=== PATIENT | female | born 1975 | race Caucasian/White ===

== ENCOUNTER 2017-04-13 20:48 | Emergency (ER) | payer OTHER ==
[~2017-04-13] VITALS: Wt 100.0 kg
[~2017-04-13 20:48] MED LIST: CIPR7.5D4 LEFT EAR; DOCU-144 PO; FER325 PO; FERR324T6 PO
[2017-04-13 22:00] LABS: URINE BLOOD (Dip) POC 3+ (NEGATIVE)
[2017-04-13 22:10] LABS: ADD SCAN DIFF NO
[2017-04-13 22:12] LABS: BASOPHILS % 0.4 % (0.0-2.0); EOSINOPHILS # 0.2 10^3/ul (0.0-0.5); HEMATOCRIT 23.7 % (37.0-47.0); HEMOGLOBIN 7.2 g/dl (12.0-16.0); LYMPHOCYTES # 2.7 10^3/ul (0.8-2.9); LYMPHOCYTES % 31.4 % (15.0-51.0); MEAN CORPUSCULAR HEMOGLOBIN 22.9 pg (29.0-33.0); MEAN CORPUSCULAR HGB CONC 30.4 g/dl (32.0-37.0); MEAN CORPUSCULAR VOLUME 75.5 fl (82.0-101.0); MEAN PLATELET VOLUME 9.4 fl (7.4-10.4); MONOCYTE # 0.9 10^3/ul (0.3-0.9); MONOCYTES % 10.6 % (0.0-11.0); NEUTROPHIL # 4.7 10^3/ul (1.6-7.5); NEUTROPHILS % 54.8 % (39.0-77.0); NUCLEATED RED BLOOD CELLS # 0.1 10^3/ul (0.0-0.0); NUCLEATED RED BLOOD CELLS% 0.7 /100WBC (0.0-0.0); PLATELET COUNT 231 10^3/UL (140-415); RED BLOOD COUNT 3.14 10^6/ul (4.20-5.40); RED CELL DISTRIBUTION WIDTH 17.3 % (11.5-14.5); WHITE BLOOD COUNT 8.6 10^3/ul (4.8-10.8)
[2017-04-13] MEDS ORDERED: SOD CHLORIDE 0.9% 250 ML IV ONE (22:54)
--- NOTE | 2017-04-13 23:19 | RADRPT ---
PROCEDURE: US Pelvis. CLINICAL INDICATION: Vaginal bleeding for 3 months. Pelvic pain TECHNIQUE: Multiple sonographic images of the pelvis were obtained utilizing a transabdominal and endovaginal technique. The images were reviewed on a PACS workstation. COMPARISON: 01/30/2016 FINDINGS: Uterus: Normal in size, contour and echogenicity with no evidence for myometrial masses. Size is est imated at 9.4 x 5.1 x 4.5 cm. Cervix: Multiple large Nabothian cysts are similar to the prior examination the largest cyst approx imately 17 mm Endometrium: Heterogeneous in echotexture, prominent in thickness; 17.6 mm. No hypervascular blood flow on Doppler interrogation. Thickness possibly related to the patients phase of menstruation pre suming a premenopausal status Right ovary / adnexa: Normal in size estimated at 2.4 x 2.3 x 1.3 cm. No evidence for solid masses , normal blood flow on Doppler interrogation. An ovoid anechoic structure in the adnexa measures 3.2 x 1.2 x 1.2 cm possibly a paraovarian cyst or hydrosalpinx. Left ovary/adnexa: Normal in size estimated at 2.6 x 2 x 1.8 cm. No evidence for solid masses, norm al blood flow on Doppler interrogation. Simple appearing cyst measures approximately 2 x 1.8 x 1.3 c m. Cul-de-sac: No evidence of free fluid. RPTAT:HJJR IMPRESSION: 1. Thickness of the endometrium is 17.6 cm, probably related to the patients phase of menstruation presuming a premenopausal status. 2. No evidence of myometrial masses. 3. Multiple simple Nabothian cysts unchanged from 01/30/2016. 4. Anechoic structure in the right adnexa probably a paraovarian cyst of 3.2 cm, differential diagn ostic possibility is hydrosalpinx. 5. Simple cyst of the left ovary measuring 2 cm. Physician Chery Date Time Electronically viewed and signed by Physician Chery on 04/13/2017 23:18 JR/
[2017-04-14] MEDS ORDERED: IBUP-1542 PO (01:54)
[2017-04-14] MEDS ORDERED: TRAN650T5 PO (01:54)
--- NOTE | 2017-04-14 02:03 | ERD ---
ER Documentation Chief Complaint Date/Time DATE: 04/14/17 TIME: 01:55 Chief Complaint VAGINAL BLEEDING X3 MONTHS W/ DIZZINESS HPI 42-year-old female with history of dysfunctional vaginal bleeding and anemia present ED with vaginal bleeding 3 month. Patient is complaining of feeling dizzy, chest pain, and fatigue. She went to [place] [facility] 2 weeks ago, and received a blood transfusion. Patient also had similar episode one year ago, with required hospitalization. Denies fever or chills. Denies any other medical history. ROS All systems reviewed and are negative except as per history of present illness. Medications Home Meds Active Scripts Ethinyl Estradiol-Drospirenone (Michelle 28-Day) 3-0.02 Mg Tablet, 1 TAB PO DAILY, # 28 TAB Prov:RADHA HARTLEY NP 04/14/17 Ibuprofen* (Motrin*) 600 Mg Tab, 600 MG PO Q6H Y for PAIN AND OR ELEVATED TEMP, #30 TAB Prov:RADHA HARTLEY NP 04/14/17 Docusate Sodium* (Colace*) 100 Mg Capsule, 100 MG PO DAILY, #30 CAP Prov:CELSA PABON PA-C 06/09/16 Ferrous Sulfate* (Ferrous Sulfate*) 325 Mg Tabec, 325 MG PO TID, #60 TAB Prov:CELSA PABON PA-C 06/09/16 Ciprofloxacin Hcl/Dexameth (Ciprodex Otic Suspension) 7.5 Ml Drops.susp, 4 DROP LEFT EAR BID for 7 Days, EA Prov:RAKESH LIPSCOMB PA-C 04/20/16 Ferrous Sulfate (Ferrous Sulfate) 324 Mg Tabsr, 324 MG PO BID for 28 Days Prov:DORITA EL MD 02/08/16 Discontinued Scripts Tranexamic Acid (TRANEXAMIC ACID) 650 Mg Tablet, 1300 MG PO TID, #30 TAB Take until mense stops or max 5 days. Prov:RADHA HARTLEY NP 04/14/17 Allergies Allergies: Coded Allergies: No Known Drug Allergy (Verified Allergy, Mild, 06/08/16) PMhx/Soc Medical and Surgical Hx: pt denies Medical Hx History of Surgery: No (cholecystectomy 2013) Anesthesia Reaction: No Hx Neurological Disorder: No Hx Respiratory Disorders: No Hx Cardiac Disorders: No Hx Psychiatric Problems: No Hx Miscellaneous Medical Probl: Yes (HEAVY MENISTRATIONS) Hx Alcohol Use: No Hx Substance Use: No Hx Tobacco Use: No Smoking Status: Never smoker Physical Exam Vitals Vital Signs Date Time Temp Pulse Resp B/P Pulse Ox O2 Delivery O2 Flow Rate FiO2 04/14/17 04:10 98.1 73 18 127/62 98 Room Air 04/14/17 03:00 97.3 73 17 111/64 100 Room Air 04/14/17 01:00 97.9 72 17 124/72 100 Room Air 04/13/17 20:50 99.6 96 18 167/83 98 Physical Exam General: Well-developed, well-nourished, conscious and coherent, in no distress Skin: Warm and dry without rash, good texture and turgor Head: Normocephalic without evidence of trauma Eyes: Sclera and conjunctivae normal; pupils equal, round, and reactive to light; extraocular movements are intact Neck: Supple without meningismus or adenopathy. Carotids are equal. Trachea midline. No bruits or JVD Chest: Normal AP diameter. Good expansion without retractions. Nontender. Lungs are clear to auscultate bilaterally with good tidal volume Heart: Regular rate and rhythm. No murmur, rub, or gallops heard Abdomen: Soft and nontender without masses, guarding, or rebound. Bowel sounds are active. No hepatosplenomegaly Back: Without spinal or CVA tenderness Pelvis: Nontender to palpation and stable to compression Extremities: Full range of motion. Good strength bilaterally. No clubbing, cyanosis, or edema. Peripheral pulses are intact. Sensation intact Neuro: Alert and oriented 4, GCS 15. Cranial nerves grossly intact. Motor and sensory exams nonfocal. Moves all extremities. Speech clear. Gait normal Result Diagram: 04/14/17 0400 Results 24 hrs Laboratory Tests Test 04/13/17 21:55 04/13/17 22:05 04/14/17 04:00 White Blood Count 8.610^3/ul 6.210^3/ul Red Blood Count 3.1410^6/ul 3.2310^6/ul Hemoglobin 7.2g/dl 7.8g/dl Hematocrit 23.7% 24.8% Mean Corpuscular Volume 75.5fl 76.8fl Mean Corpuscular Hemoglobin 22.9pg 24.1pg Mean Corpuscular Hemoglobin Concent 30.4g/dl 31.5g/dl Red Cell Distribution Width 17.3% 17.8% Platelet Count 17466^3/UL 64132^3/UL Mean Platelet Volume 9.4fl 9.4fl Neutrophils % 54.8% 57.3% Lymphocytes % 31.4% 30.7% Monocytes % 10.6% 8.4% Eosinophils % 2.0% 2.1% Basophils % 0.4% 0.5% Nucleated Red Blood Cells % 0.7/100WBC 0.6/100WBC Neutrophils # 4.710^3/ul 3.510^3/ul Lymphocytes # 2.710^3/ul 1.910^3/ul Monocytes # 0.910^3/ul 0.510^3/ul Eosinophils # 0.210^3/ul 0.110^3/ul Basophils # 0.010^3/ul 0.010^3/ul Nucleated Red Blood Cells # 0.110^3/ul 0.010^3/ul Bedside Urine pH (LAB) 6.0 Bedside Urine Protein (LAB) 1+ Bedside Urine Glucose (UA) Negative Bedside Urine Ketones (LAB) Negative Bedside Urine Blood 3+ Bedside Urine Nitrite (LAB) Negative Bedside Urine Leukocyte Esterase (L Negative Current Medications Medications (Trade) Dose Ordered Sig/Kat Route PRN Reason Start Time Stop Time Status Last Admin Dose Admin Sodium Chloride (NS) 250 ml @ 0 mls/hr Q0M ONCE IV 04/13/17 22:54 04/13/17 22:56 DC 04/13/17 22:54 Procedures/MDM Well-appearing 42-year-old female with history of dysfunctional uterine bleeding anemia present ED with vaginal bleeding 3 month. Hemoglobin today is 7.2. Patient is symptomatic for anemia with dizziness, fatigue, and chest pain. EKG: Normal sinus rhythm, normal axis, rate [address] segment elevation or depression. No ectopic beats. No QT prolongation. No other EKG abnormalities. EKG read by Dr. Estrada. I consulted Dr. Estrada, who suggests to transfuse 1 unit of packed red cell for the patient. Repeat CBC after blood transfusion showed hemoglobin increased to 7.8. I discussed with the patient regarding using oral contraception pills to control the menstruation cycle, and reduce bleeding. Patient is a non-smoker, no prior history of thromboembolism. Patient agreed to take OCP. Michelle is prescribed for the patient. Patient also advised to follow-up with a apparatus lineman. Patient appears well, stable for discharge and outpatient management. Medical decision making shared with patient and family. Education provided to patient and family. Patient and family expressed understanding of the plan. Medications on discharge: Michelle, ibuprofen. Follow-up: Primary care provider in 2-3 days or return to ED if worse. Disclaimer: Inadvertent spelling and grammatical errors are likely due to EHR/ dictation software use and do not reflect on the overall quality of patient care. Also, please note that the electronic time recorded on this note does not necessarily reflect the actual time of the patient encounter. Departure Diagnosis: Primary Impression: Anemia Anemia type: iron deficiency Iron deficiency anemia type: chronic blood loss Qualified Code: D50.0 - Iron deficiency anemia due to chronic blood loss Additional Impression: Dysfunctional uterine bleeding Condition: Stable Patient Instructions: Anemia, Dysfunctional Uterine Bleeding Additional Instructions: Llame al doctor MAANA y dick juarez MICHELLE PARA DENTRO DE 2-3 MONTERO.Dgale a la secretaria que nosotros le instruimos hacer esta michelle.Avise o llame si parks condicin se empeora antes de la michelle. Regresa aqui si peor o no mejor. RADHA HARTLEY NP Apr 14, 2017 02:03
[2017-04-14 04:10] VITALS: BP 127/62; PULSE 73; RESP 18; TEMP 98.1
[2017-04-14 04:15] LABS: ADD SCAN DIFF NO
[2017-04-14 04:17] LABS: BASOPHILS % 0.5 % (0.0-2.0); EOSINOPHILS # 0.1 10^3/ul (0.0-0.5); EOSINOPHILS % 2.1 % (0.0-7.0); HEMATOCRIT 24.8 % (37.0-47.0); HEMOGLOBIN 7.8 g/dl (12.0-16.0); LYMPHOCYTES # 1.9 10^3/ul (0.8-2.9); LYMPHOCYTES % 30.7 % (15.0-51.0); MEAN CORPUSCULAR HEMOGLOBIN 24.1 pg (29.0-33.0); MEAN CORPUSCULAR HGB CONC 31.5 g/dl (32.0-37.0); MEAN CORPUSCULAR VOLUME 76.8 fl (82.0-101.0); MEAN PLATELET VOLUME 9.4 fl (7.4-10.4); MONOCYTE # 0.5 10^3/ul (0.3-0.9); MONOCYTES % 8.4 % (0.0-11.0); NEUTROPHIL # 3.5 10^3/ul (1.6-7.5); NEUTROPHILS % 57.3 % (39.0-77.0); NUCLEATED RED BLOOD CELLS% 0.6 /100WBC (0.0-0.0); PLATELET COUNT 199 10^3/UL (140-415); RED BLOOD COUNT 3.23 10^6/ul (4.20-5.40); RED CELL DISTRIBUTION WIDTH 17.8 % (11.5-14.5); WHITE BLOOD COUNT 6.2 10^3/ul (4.8-10.8)
[2017-04-14] MEDS ORDERED: ETHI1TAB25 PO (04:40)
== END 2017-04-14 05:00 | disposition home or self-care (01) ==
LOC: FTE 20:48
DX: D50.0 Iron deficiency anemia secondary to blood loss (chronic) (principal); R40.2252 Coma scale, best verbal response, oriented, at arrival to emergency department; R42 Dizziness and giddiness; R40.2142 Coma scale, eyes open, spontaneous, at arrival to emergency department; R40.2362 Coma scale, best motor response, obeys commands, at arrival to emergency department
CPT/HCPCS: 36430; 76830; 76856; 81003; 85025; 86850; 86900; 86901; 86920; 93005; J7040; P9016; Z7502

== ENCOUNTER 2017-12-10 06:40 | Day surgery (SDC) | END 2017-12-10 13:16 | disposition home or self-care (01) ==

== ENCOUNTER 2018-02-28 22:24 | Emergency (ER) | END 2018-03-01 00:37 | disposition home or self-care (01) ==

== ENCOUNTER 2018-06-26 00:36 | Inpatient (IN) | END 2018-06-30 18:10 | disposition home or self-care (01) | DRG 760 ==

== ENCOUNTER 2018-07-29 08:13 | Day surgery (SDC) | END 2018-07-29 15:35 | disposition home or self-care (01) ==

== ENCOUNTER 2019-01-03 13:28 | Emergency (ER) | payer OTHER ==
[~2019-01-03] VITALS: Wt 89.0 kg
[~2019-01-03 13:28] MED LIST changes: +ASCO500C7 PO; +ATOR20TA38 PO; -CIPR7.5D4 LEFT EAR; -DOCU-144 PO; -FER325 PO; -FERR324T6 PO; +HYDR25TA6 PO; +METF500T24 PO
[2019-01-03 13:31] VITALS: BP 147/88; PULSE 88; RESP 18
[2019-01-03] MEDS ORDERED: ONDANSETRON (ODT) 4 MG TAB ODT STA (14:36)
[2019-01-03] MEDS ORDERED: MECLIZINE 12.5 MG TAB PO ONE (15:00)
[2019-01-03] MEDS ORDERED: ONDA8TAB14 PO (15:41)
[2019-01-03] MEDS ORDERED: MECL-77 PO (15:41)
--- NOTE | 2019-01-03 15:44 | ERD ---
ER Documentation Chief Complaint Chief Complaint DIZZINESS SINCE HPI 43-year-old female presents with spinning type dizziness for the last 5 days. Is worse with head movement. She denies any recent URIs, ear pain, chest pain, shortness of breath. She states that she has a history of anemia due to heavy menstrual periods but currently is not having vaginal bleeding. She denies fevers, abdominal pain, urinary complaints. She has weakness or deficits. She denies history of trauma. ROS All systems reviewed and are negative except as per history of present illness. Medications Home Meds Active Scripts Ondansetron (Ondansetron Odt) 8 Mg Tab.rapdis, 8 MG PO Q6H PRN for NAUSEA AND/OR VOMITING, #10 TAB Prov:ANA CRISTINA PAEZ MD 01/03/19 Meclizine Hcl* (Meclizine Hcl*) 25 Mg Tablet, 25 MG PO Q8H PRN for DIZZINESS, #15 TAB Prov:ANA CRISTINA PAEZ MD 01/03/19 Reported Medications Ascorbic Acid* (Vitamin C*) 500 Mg Capsule.sa, 500 MG PO DAILY, CAP 07/29/18 Atorvastatin Calcium* (Atorvastatin Calcium*) 20 Mg Tablet, 20 MG PO QHS, #30 TAB 07/29/18 Metformin Hcl* (Metformin Hcl*) 500 Mg Tablet, 500 MG PO WITH BREAKFAST DINNE, #60 TAB 07/29/18 Hydrochlorothiazide* (Hydrochlorothiazide*) 25 Mg Tab, 25 MG PO DAILY, #30 TAB 07/29/18 Allergies Allergies: Coded Allergies: No Known Drug Allergy (Verified Allergy, Mild, 07/29/18) PMhx/Soc Medical and Surgical Hx: pt denies Medical Hx, pt denies Surgical Hx History of Surgery: Yes (LAP CHOLY ) Anesthesia Reaction: No Hx Neurological Disorder: No Hx Respiratory Disorders: No Hx Cardiac Disorders: Yes (HTN, HIGH CHOLESTEROL ) Hx Psychiatric Problems: No Hx Miscellaneous Medical Probl: No Hx Alcohol Use: No Hx Substance Use: No Hx Tobacco Use: No Smoking Status: Never smoker FmHx Family History: No diabetes, No coronary disease, No other Physical Exam Vitals Vital Signs Date Temp Pulse Resp B/P (MAP) Pulse Ox O2 O2 Flow FiO2 Time Delivery Rate 01/03/19 97.8 88 18 147/88 99 13:31 (107) Physical Exam Const: No acute distress Head: Atraumatic Eyes: Normal Conjunctiva. Slight pallor of the conjunctiva. ENT: Normal External Ears, Nose and Mouth. Neck: Full range of motion. No meningismus. Resp: Clear to auscultation bilaterally Cardio: Regular rate and rhythm, no murmurs Abd: Soft, non tender, non distended. Normal bowel sounds Skin: No petechiae or rashes Back: No midline or flank tenderness Ext: No cyanosis, or edema Neur: Awake and alert. Reproducible vertigo to the left. Negative cover uncover test. No cerebellar signs. Negative Romberg and no pronator drift. Normal gait. Psych: Normal Mood and Affect Result Diagram: 01/03/19 1454 01/03/19 1454 Results 24 hrs Laboratory Tests Test 01/03/19 14:54 01/03/19 15:00 01/03/19 15:03 White Blood Count 9.0 10^3/ul Red Blood Count 5.16 10^6/ul Hemoglobin 11.3 g/dl Hematocrit 37.0 % Mean Corpuscular Volume 71.7 fl Mean Corpuscular Hemoglobin 21.9 pg Mean Corpuscular 30.5 g/dl Hemoglobin Concent Red Cell Distribution Width 19.4 % Platelet Count 351 10^3/UL Mean Platelet Volume 9.1 fl Immature Granulocytes % 0.300 % Neutrophils % 60.6 % Lymphocytes % 26.2 % Monocytes % 10.9 % Eosinophils % 1.4 % Basophils % 0.6 % Nucleated Red Blood Cells % 0.0 /100WBC Immature Granulocytes # 0.030 10^3/ul Neutrophils # 5.4 10^3/ul Lymphocytes # 2.4 10^3/ul Monocytes # 1.0 10^3/ul Eosinophils # 0.1 10^3/ul Basophils # 0.1 10^3/ul Nucleated Red Blood Cells # 0.0 10^3/ul Sodium Level 139 mmol/L Potassium Level 3.4 mmol/L Chloride Level 100 mmol/L Carbon Dioxide Level 26 mmol/L Anion Gap 13 Blood Urea Nitrogen 9 mg/dl Creatinine 0.45 mg/dl Est Glomerular Filtrat > 60 mL/min Rate mL/min Glucose Level 140 mg/dl Calcium Level 9.9 mg/dl Urine Color STRAW Urine Clarity CLEAR Urine pH 5.0 Urine Specific Bryan 1.008 Urine Ketones NEGATIVE mg/dL Urine Nitrite NEGATIVE mg/dL Urine Bilirubin NEGATIVE mg/dL Urine Urobilinogen NEGATIVE mg/dL Urine Leukocyte Esterase NEGATIVE Faby/ul Urine Microscopic RBC 0 /HPF Urine Microscopic WBC 0 /HPF Urine Bacteria FEW /HPF Urine Hemoglobin 1+ mg/dL Urine Glucose NEGATIVE mg/dL Urine Total Protein NEGATIVE mg/dl POC Beta HCG, Qualitative NEGATIVE Current Medications Medications Dose Sig/Kat Start Time Status Last (Trade) Ordered Route PRN Stop Time Admin Dose Reason Admin Meclizine 25 mg ONCE ONCE 01/03/19 DC 01/03/19 HCl PO 15:00 01/03/19 14:51 (Antivert) 15:01 Ondansetron 8 mg ONCE STAT 01/03/19 DC 01/03/19 HCl (Zofran ODT 14:36 01/03/19 14:50 Odt) 14:39 Procedures/MDM EKG: Rate/Rhythm: Normal Sinus Rhythm. Rate equals 84 QRS, ST, T-waves: No changes consistent w/ acute ischemia Impression: No evidence of ischemia or arrhythmia. Impression-normal EKG CBC formed given history of anemia slight pallor of the lids and shows minimally decreased hemoglobin. Basic metabolic panel has no significant acute abnormalities except for potassium 3.4. Urine shows 1+ hemoglobin without ad ditional acute abnormalities. hCG negative. Patient given Zofran and Antivert. Patient presents with signs and symptoms of likely peripheral vertigo. She has no signs of central vertigo, neurologic deficits, signs of chest pain, abdominal pain, additional concerning signs or symptoms. Will treat with Zofran, Antivert, primary care follow-up and return precautions. The patient was stable with no new complaints during the ER course. Clinically, there is no current evidence to suggest meningitis, sepsis, acute abdomen, pneumonia, stroke, acute coronary syndrome, pulmonary embolism, aortic dissection or any other emergent condition appearing to require further evaluation or hospitalization. Patient counseled regarding my diagnostic impression and care plan. Prior to discharge all questions answered. Pt agrees with treatment plan and understands strict return precautions. Pt is instructed to follow up with primary care provider within 24-48 hours. Precautionary instructions provided including instructions to return to the ER if not improving or for any worsening or changing symptoms or concerns. Departure Diagnosis: Primary Impression: Dizziness Condition: Stable Patient Instructions: Dizziness, Unk Cause, Vertigo, Unspecified Referrals: DOCTOR,NOT ON STAFF (PCP) Additional Instructions: Examines normal hoy. Cheque otro vez con parks doctor primario en el proximo pringle or regresa para mas o nueva simptomas. ANA CRISTINA PAEZ MD Jan 03, 2019 15:44
== END 2019-01-03 15:59 | disposition home or self-care (01) ==
LOC: FTE 13:28
DX: R42 Dizziness and giddiness (principal); I10 Essential (primary) hypertension; Z79.84 Long term (current) use of oral hypoglycemic drugs
CPT/HCPCS: 80048; 81001; 81025; 85025; Z7502; Z7610

== ENCOUNTER 2019-04-24 14:05 | Emergency (ER) | payer OTHER ==
[~2019-04-24] VITALS: Ht 152.4 cm; Wt 93.5 kg
[~2019-04-24 14:05] MED LIST changes: +MECL-77 PO; +ONDA8TAB14 PO
[2019-04-24 14:24] VITALS: RESP 16; Ht 152.4 cm; Wt 93.5 kg
[2019-04-24] MEDS ORDERED: ONDANSETRON 4 MG INJ IV STA (15:48)
[2019-04-24] MEDS ORDERED: SOD CHLORIDE 0.9% 1,000 ML IV STA (15:48)
[2019-04-24] MEDS ORDERED: KETOROLAC 15 MG INJ IV STA (15:48)
--- NOTE | 2019-04-24 15:50 | ERD ---
ER Documentation Chief Complaint Chief Complaint flank pain x 5 days, with nausea HPI 44-year-old female, presents the emergency department, complaining of right flank pain for 5 days, associated with nausea. The pain is constant, dull, 5/10. The patient also reports history of abnormal uterine bleeding and her menstrual period started 2 weeks ago. She denies weakness, no palpitations, no dizziness. No reports of fever or chills, no urinary symptoms, no diarrhea or constipation. ROS All systems reviewed and are negative except as per history of present illness. Medications Home Meds Active Scripts Acetaminophen* (Tylenol*) 325 Mg Tablet, 2 TAB PO Q6 PRN for PAIN AND OR ELEVATED TEMP, #20 TAB Prov:LORETTA KUMAR MD 04/24/19 Ibuprofen* (Motrin*) 400 Mg Tab, 400 MG PO Q8, #30 TAB Prov:LORETTA KUMAR MD 04/24/19 Ondansetron (Ondansetron Odt) 8 Mg Tab.rapdis, 8 MG PO Q6H PRN for NAUSEA AND/OR VOMITING, #10 TAB Prov:ANA CRISTINA PAEZ MD 01/03/19 Meclizine Hcl* (Meclizine Hcl*) 25 Mg Tablet, 25 MG PO Q8H PRN for DIZZINESS, #15 TAB Prov:ANA CRISTINA PAEZ MD 01/03/19 Reported Medications Ascorbic Acid* (Vitamin C*) 500 Mg Capsule.sa, 500 MG PO DAILY, CAP 07/29/18 Atorvastatin Calcium* (Atorvastatin Calcium*) 20 Mg Tablet, 20 MG PO QHS, #30 TAB 07/29/18 Metformin Hcl* (Metformin Hcl*) 500 Mg Tablet, 500 MG PO WITH BREAKFAST DINNE, #60 TAB 07/29/18 Hydrochlorothiazide* (Hydrochlorothiazide*) 25 Mg Tab, 25 MG PO DAILY, #30 TAB 07/29/18 Allergies Allergies: Coded Allergies: No Known Drug Allergy (Verified Allergy, Mild, 07/29/18) PMhx/Soc History of Surgery: Yes (LAP ISIDRO) Anesthesia Reaction: No Hx Neurological Disorder: No Hx Respiratory Disorders: No Hx Cardiac Disorders: Yes (HTN, HIGH CHOLESTEROL ) Hx Psychiatric Problems: No Hx Miscellaneous Medical Probl: No Hx Alcohol Use: No Hx Substance Use: No Hx Tobacco Use: No FmHx Family History: No diabetes, No coronary disease Physical Exam Vitals Vital Signs Date Temp Pulse Resp B/P (MAP) Pulse Ox O2 O2 Flow FiO2 Time Delivery Rate 04/24/19 80 120/64 98 Room Air 18:40 (82) 04/24/19 99.2 102 16 131/63 97 14:24 (85) Physical Exam Const: No acute distress Head: Atraumatic Eyes: Normal Conjunctiva ENT: Normal External Ears, Nose and Mouth. Neck: Full range of motion. No meningismus. Resp: Clear to auscultation bilaterally Cardio: Regular rate and rhythm, no murmurs Abd: Soft, non tender, non distended. Normal bowel sounds Skin: No petechiae or rashes Back: No midline or flank tenderness Ext: No cyanosis, or edema Neur: Awake and alert Psych: Normal Mood and Affect Result Diagram: 04/24/19 1555 04/24/19 1555 Results 24 hrs Laboratory Tests Test 04/24/19 15:55 04/24/19 16:05 White Blood Count 11.6 10^3/ul Red Blood Count 4.74 10^6/ul Hemoglobin 11.1 g/dl Hematocrit 35.4 % Mean Corpuscular Volume 74.7 fl Mean Corpuscular Hemoglobin 23.4 pg Mean Corpuscular Hemoglobin Concent 31.4 g/dl Red Cell Distribution Width 15.9 % Platelet Count 366 10^3/UL Mean Platelet Volume 9.3 fl Immature Granulocytes % 0.400 % Neutrophils % 69.4 % Lymphocytes % 18.7 % Monocytes % 10.4 % Eosinophils % 0.8 % Basophils % 0.3 % Nucleated Red Blood Cells % 0.0 /100WBC Immature Granulocytes # 0.050 10^3/ul Neutrophils # 8.0 10^3/ul Lymphocytes # 2.2 10^3/ul Monocytes # 1.2 10^3/ul Eosinophils # 0.1 10^3/ul Basophils # 0.0 10^3/ul Nucleated Red Blood Cells # 0.0 10^3/ul Urine Color YELLOW Urine Clarity SLIGHTLY CLOUDY Urine pH 5.0 Urine Specific [place] 1.019 Urine Ketones NEGATIVE mg/dL Urine Nitrite NEGATIVE mg/dL Urine Bilirubin NEGATIVE mg/dL Urine Urobilinogen NEGATIVE mg/dL Urine Leukocyte Esterase NEGATIVE Faby/ul Urine Microscopic RBC > 182 /HPF Urine Microscopic WBC 17 /HPF Urine Hemoglobin 3+ mg/dL Urine Glucose NEGATIVE mg/dL Urine Total Protein 1+ mg/dl Sodium Level 138 mmol/L Potassium Level 4.4 mmol/L Chloride Level 102 mmol/L Carbon Dioxide Level 26 mmol/L Anion Gap 10 Blood Urea Nitrogen 9 mg/dl Creatinine 0.48 mg/dl Est Glomerular Filtrat Rate mL/min > 60 mL/min Glucose Level 126 mg/dl Calcium Level 9.1 mg/dl Total Bilirubin 0.6 mg/dl Direct Bilirubin 0.00 mg/dl Indirect Bilirubin 0.6 mg/dl Aspartate Amino Transf (AST/SGOT) 55 IU/L Alanine Aminotransferase (ALT/SGPT) 49 IU/L Alkaline Phosphatase 63 IU/L Total Protein 8.8 g/dl Albumin 4.5 g/dl Globulin 4.30 g/dl Albumin/Globulin Ratio 1.04 Lipase 49 U/L POC Beta HCG, Qualitative NEGATIVE Current Medications Medications Dose Sig/Kat Start Time Status Last (Trade) Ordered Route PRN Stop Time Admin Dose Reason Admin Sodium 1,000 ml @ Q1H STAT 04/24/19 DC 04/24/19 Chloride 1,000 mls/hr IV 15:48 16:12 04/24/19 16:47 Ondansetron 4 mg ONCE STAT 04/24/19 DC 04/24/19 HCl (Zofran IV 15:48 16:12 Inj) 04/24/19 15:53 Ketorolac 15 mg ONCE STAT 04/24/19 DC 04/24/19 Tromethamine IV 15:48 16:12 (Toradol) 04/24/19 15:53 Patient: KIM CABA : 1975 Age: 44 Sex: F MR #: [id number] DOS: 04/24/19 1548 Ordering MD: LORETTA KUMAR MD Location: [facility] Room/Bed: PROCEDURE: CT Abdomen and Pelvis without contrast. CLINICAL INDICATION: Right flank pain TECHNIQUE: CT scan of the abdomen and pelvis without contrast was performed on a multidetector high-resolution CT scanner. The patient was scanned without intravenous contrast. Coronal and sagittal reformatted images were obtained from the axial source images. Images were reviewed on a high-resolution PACS workstation. The total exam CTDI equals 21.25 mGy and the total exam DLP equals 1288.47 mGy-cm. One or more the following dose reduction techniques were utilized: Automated exposure control, adjustment of the mA and / or kV according to patient's size, or use of iterative reconstruction technique. DICOM images are available. COMPARISON: US PELVIS 06/28/2018; FINDINGS: Mild dependent atelectasis at posterior lung bases. Mild linear atelectasis/fibrosis at the lung bases. No pneumoperitoneum is seen. Hepatic steatosis. The length of the liver equals 20.1 cm consistent with hepatomegaly. Cholecystectomy. No abnormalities seen in the spleen, adrenals, pancreas. The stomach is not distended. No abdominal aortic aneurysm is seen. No abnormalities seen in the kidneys. No renal stone, hydronephrosis or ureteral stone is seen. Phleboliths in the pelvis. No abnormalities seen in the bladder. No definite abnormality of the uterus or adnexal regions seen on CT. Small umbilical hernia containing fat only. No ascites is seen. No abnormalities seen in the colon. There is an unremarkable appendix. No dilated small bowel loops are seen. No enlarged lymph nodes are seen in the abdomen or pelvis. Small scattered likely bone islands. Mild degenerative enthesopathy in thoracic spine. IMPRESSION: Hepatic steatosis. Hepatomegaly. Please see above. Procedures/MDM Vital signs stable. Differential diagnosis include but not limited to: UTI, colitis, gastroenteritis, kidney stones, irritable bowel syndrome, inflammatory bowel syndrome, malabsorption syndrome, cholelithiasis, food intolerance, medication side effect, pancreatitis, diverticulitis, bowel obstruction. Physical examination and clinical presentation consistent most likely with dysfunctional uterine bleeding. During the ED course the patient remained stable, no new complaints. The patient received treatment with IV fluids and IV medications presenting overall improvement of the symptoms. Results and clinical impression discussed with the patient who agrees with management. The patient is stable to be treated outpatient and will be discharged home; some side effects of prescribed medications (headache, rash, nausea, vomiting, diarrhea, drowsiness, habituation, bleeding, hypertension, interactions with other medications) were reviewed. The patient was informed that the evaluation in the emergency department has been done to rule out an acute emergency, therefore, chronic conditions like malignancy or other diseases have not been evaluated; therefore, the patient was instructed to follow up with the primary care provider in the next 48h. If symptoms persist, worsen or new symptoms develop, then patient should return to the ED immediately. Instructions explained and given directly by me to the patient with acknowledgment and demonstrated understanding. Disclaimer: Inadvertent spelling and grammatical errors are likely due to EHR/dictation software use and do not reflect on the overall quality of patient care. Also, please note that the electronic time recorded on this note does not necessarily reflect the actual time of the patient encounter. Departure Diagnosis: Primary Impression: Flank pain Additional Impressions: Dysfunctional uterine bleeding Anemia Condition: Stable Patient Instructions: Anemia Additional Instructions: Muchas stacey por [facility] para parks servicio. Esperamos que en parks visita a la raiza de emergencia parks problema medico haya sido solucionado y que se sienta mucho mejor. Para estar seguros que parks mejoria sigue en proceso, le pedimos el favor de hacer juarez namrata de seguimiento medico con parks doctor primario en los proximos 2-4 pringle. Lleve con usted estos documentos y las medicinas recetadas. Si louis sintomas empeoran, NO SE ESPERE, por favor regrese a raiza de emergencia I NMEDIATAMENTE. En burt que usted no tenga un mdico de atencin primaria: Llame al mdico o clnica comunitaria de referencia que aparece abajo doroteo las horas de consultorio para hacer juarez namrata para que le vean. CLINICAS: [facility] [id number] [facility] [id number] [facility] [phone] [facility] [id number] [facility] [phone] [address] [facility]. [phone] MD Apr 24, 2019 15:50
[2019-04-24] MEDS ORDERED: IBUP-1561 PO (18:19)
[2019-04-24] MEDS ORDERED: ACET325T33 PO (18:19)
[2019-04-24 18:40] VITALS: BP 120/64; PULSE 80
== END 2019-04-24 18:41 | disposition home or self-care (01) ==
LOC: FTE 14:05
DX: R10.9 Unspecified abdominal pain (principal); I10 Essential (primary) hypertension; N93.8 Other specified abnormal uterine and vaginal bleeding; D64.9 Anemia, unspecified; Z79.84 Long term (current) use of oral hypoglycemic drugs
CPT/HCPCS: 36415; 74176; 80053; 81001; 81025; 83690; 85025; 96361; 96374; 96375; J1885; J2405; J7030; Z7502